=== PATIENT | female | born 1965 | race Caucasian/White ===

== ENCOUNTER 2017-03-12 12:15 | Emergency (ER) | payer OTHER ==
[~2017-03-12] VITALS: Ht 177.8 cm; Wt 100.0 kg
[~2017-03-12 12:15] MED LIST: CHOL1CAP6 PO; NITR.4 SL; PRAV20TA67 PO; RANI150 PO; TOPR25TA2 PO; VITA250L PO
[2017-03-12 12:16] VITALS: BP 140/92; PULSE 80; RESP 18; TEMP 98.3; O2SAT 97
--- NOTE | 2017-03-12 12:34 | PD ---
Physical Exam Time Seen by Provider: 12:32 Narrative Pt presents to the ED for evaluation of posterior head pain radiating to right arm that began 5 days ago worsened today. Denies any injury or trauma. Painful ROM of neck. Has history of neck pain. VSS. Awaiting bed placement. Data Data Last Documented VS Vital Signs Date Time Temp Pulse Resp B/P Pulse Ox O2 Delivery O2 Flow Rate FiO2 03/12/17 12:16 98.3 80 18 140/92 97 Room Air MDM Supervised Visit with CASIE: Marta Phillips Mar 12, 2017 12:34
[2017-03-12] MEDS ORDERED: METO25TA6 PO (12:53)
[2017-03-12] MEDS ORDERED: PRAV20TA2 PO (12:53)
--- NOTE | 2017-03-12 13:14 | PD ---
HPI Chief Complaint: Headache Time Seen by Provider: 13:13 Travel History International Travel<30 days: No Contact w/Intl Traveler<30days: No Traveled to known affect area: No History of Present Illness HPI 51-year-old female presents to the emergency Department with complaint of a right posterior headache since Friday. She was at work when the headache onset and gradually onset. It fluctuates in intensity. Reports nausea without vomiting. Denies fever. Headache is throbbing and stabbing in sensation. Rates the headache 7/10. Headache is not worse with movement of the neck. Denies photophobia or phonophobia. Denies change in mentation, confusion, disorientation. Denies focal deficits or weakness. Denies slurred speech. Does have history of migraines but has not had a migraine for many years and this is not similar to past headaches. She does report chronic neck pain which she has some physical therapy for. She also is complaining of pain that radiates down her right arm at times. She has tried taking Tylenol and ibuprofen with no relief of headache. Denies anticoagulants. History of complete hysterectomy. No known relieving factors. Allergies to adhesives and codeine. Has no other medical complaints. No other modifying factors or associated signs and symptoms. PFSH Past Medical History Blood Disorders: No Heart Rhythm Problems: Yes (PALPITATIONS) Cancer: No Cardiac Catheterization: Yes (2008) Cardiovascular Problems: Yes High Cholesterol: Yes Chest Pain: Yes Congestive Heart Failure: No Diabetes: No Diminished Hearing: No Endocrine: No Genitourinary: Yes Hepatitis: No Hiatal Hernia: No Hypertension: Yes (PT DENIES ) Immune Disorder: No Kidney Stones: Yes (lithotripsy x1, stones x2-3) Medical other: Yes (neck pain going to physical therapy right now) Musculoskeletal: Yes Neurologic: Yes Psychiatric: No Reproductive: Yes (Hx ectopic , s/p hysterectomy and bilateral oophorectomy) Respiratory: No Immunizations Current: Yes Migraines: Yes Thyroid Disease: No ?: Not Menopausal: No : 2 Para: 1 Miscarriage: 1 Ectopic : Yes (2001) Past Surgical History Abdominal Surgery: Yes (gallbladder removed) Section: Yes Cholecystectomy: Yes Coronary Artery Bypass Graft: No Gynecologic Surgery: Yes ( ablation , ectopic , hysterectomy with bilateral oophorectomy) Hysterectomy: Yes Other Surgery: Yes Social History Alcohol Use: No Tobacco Use: No Substance Use: No Allergies-Medications (Allergen,Severity, Reaction): Coded Allergies: Adhesives (Verified Allergy, Intermediate, Rash, 03/12/17) Codeine (Verified Adverse Reaction, Intermediate, Nausea/Vomiting, 03/12/17) Reported Meds & Prescriptions Reported Meds & Active Scripts Active Robaxin (Methocarbamol) 500 Mg Tab 500 Mg PO QID PRN Ibuprofen 800 Mg Tab 800 Mg PO Q6HR PRN Reported Metoprolol Succinate ER 24 HR (Metoprolol Succinate) 25 Mg Tab 25 Mg PO BID Pravastatin 20 Mg Tab 20 Mg PO DAILY Review of Systems Except as stated in HPI: all other systems reviewed are Neg Physical Exam Narrative GENERAL: Well-nourished, well-developed female patient, in no acute distress SKIN: Warm and dry. HEAD: Atraumatic. Normocephalic. No facial droop noted. Tongue midline. EYES: Pupils equal and round at 3 mm with brisk reaction. No scleral icterus. No injection or drainage. PERRLA. EOMI. ENT: Mucosa pink and moist. Airway patent. NECK: Trachea midline. No lymphadenopathy. CARDIOVASCULAR: Regular rate and rhythm. No murmur appreciated. RESPIRATORY: No accessory muscle use. Clear to auscultation. Breath sounds equal bilaterally. GASTROINTESTINAL: Abdomen soft, non-tender, nondistended. Hepatic and splenic margins not palpable. Bowel sounds are active 4 quadrants. MUSCULOSKELETAL: Bilateral upper and lower extremities with equal strength. No obvious deformities. No clubbing. No cyanosis. No edema. NEUROLOGICAL: Awake and alert. Oriented 3. No obvious cranial nerve deficits. Motor grossly within normal limits. Normal speech. No ataxia. No mid -line drift. Moves all extremities. 5/5 strength to all extremities. PSYCHIATRIC: Appropriate mood and affect; insight and judgment normal. Data Data Last Documented VS Vital Signs Date Time Temp Pulse Resp B/P Pulse Ox O2 Delivery O2 Flow Rate FiO2 03/12/17 12:16 98.3 80 18 140/[address] Brain W/O Iv Contrast(Rout) (03/12/17 ) Ketorolac Inj (Toradol Inj) (03/12/17 13:45) Ondansetron Odt (Zofran Odt) (03/12/17 13:45) MDM Medical Decision Making Medical Screen Exam Complete: Yes Emergency Medical Condition: Yes Medical Record Reviewed: Yes Differential Diagnosis Neck pain, headaches, cervical radicular retinopathy Narrative Course 51-year-old female with right posterior headache since Friday. Patient is history of migraines but this is not similar to her migraine headaches. Was gradual onset. Neurological exam is unremarkable. Patient is moving extremities in chronic neck pain for the past few years with possible cervical radiculopathy. She does not feel that her headache is related to her neck pain. CT head ordered. 1342: CT head concludes: Normal examination for a patient of this age. No significant change has occurred. I discussed further evaluation of the headache with spinal tap and the patient declined at this time. Suspecting headache is related to cervical radiculopathy of the neck. Patient has an appointment was scheduled with neurology on Friday. Toradol and Zofran administered in the ER. Ibuprofen prescribed for home. Instructed patient to follow up with primary care provider. Patient verbalizes understanding and agreement with treatment plan. Patient is medically cleared and stable for discharge. Discussed reasons to return to the emergency department. Patient agrees with treatment plan. The patients vital signs are stable and the patient is stable for outpatient follow-up and treatment. Patient discharged home, stable and in no acute distress. Diagnosis Primary Impression: Headache Qualified Code: R51 - Nonintractable headache, unspecified chronicity pattern , unspecified headache type Additional Impression: Chronic neck pain Referrals: Primary Care Physician Patient Instructions: Acute Headache (ED), General Headache (ED), General Instructions, Neck Pain (ED) Additional Instructions: Ibuprofen or Tylenol as directed and as needed to reduce headache Get plenty of rest: do not over sleep rest and relax in a dark, quiet room as needed Place an ice pack on the back of her neck to reduce head pain as needed Keep a headache diary of what triggers her headaches and what treatment is most effective Avoid identifiable triggers Avoid smoking, alcohol and caffeine consumption Reduce stress Follow-up with primary care provider within 1-2 days Follow-up with neurology Return immediately to the emergency department with worsening symptoms Med/Other Pt SpecificInfo: Prescription(s) given Scripts Methocarbamol (Robaxin)500 Mg [id number] Mg PO QID PRN (MUSCLE SPASM) #30 TAB Ref 0 Prov:Marta Díaz 03/12/17 Ibuprofen 800 Mg [id number] Mg PO Q6HR PRN (PAIN) #30 TAB Ref 0 Prov:Marta Díaz 03/12/17 Disposition: 01 DISCHARGE HOME Condition: Stable Marta Díaz Mar 12, 2017 13:14
--- NOTE | 2017-03-12 13:39 | RADRPT ---
EXAM DATE/TIME: 03/12/2017 13:28 [facility] COMPARISON: CT BRAIN W/O CONTRAST, February 04, 2012, 23:11. INDICATIONS : Posterior headache. RADIATION DOSE: 56.35 CTDIvol (mGy) MEDICAL HISTORY : Cardiovascular disease. SURGICAL HISTORY : Cholecystectomy. Hysterectomy. ENCOUNTER: Initial ACUITY: 1 week PAIN SCALE: 4/10 LOCATION: Bilateral cranial TECHNIQUE: Multiple contiguous axial images were obtained of the head. Using automated exposure control and adj ustment of the mA and/or kV according to patient size, radiation dose was kept as low as reasonably a chievable to obtain optimal diagnostic quality images. DICOM format image data is available electro nically for review and comparison. FINDINGS: CEREBRUM: The ventricles are normal for age. No evidence of midline shift, mass lesion, hemorrhage or acute in farction. No extra-axial fluid collections are seen. POSTERIOR FOSSA: The cerebellum and brainstem are intact. The 4th ventricle is midline. The cerebellopontine angle i s unremarkable. EXTRACRANIAL: The visualized portion of the orbits is intact. SKULL: The calvaria is intact. No evidence of skull fracture. CONCLUSION: Normal examination for a patient of this age. No significant change has occurred. Gamal Anaya MD on March 12, 2017 at 13:36 Board Certified Radiologist. This report was verified electronically.
[2017-03-12] MEDS ORDERED: KETOROLAC TROMETHAMINE 60 MG/2 ML (IM) VIAL IM ONE (13:45)
[2017-03-12] MEDS ORDERED: ONDANSETRON ODT 4 MG TAB PO ONE (13:45)
[2017-03-12] MEDS ORDERED: IBUP800T23 PO (13:49)
[2017-03-12] MEDS ORDERED: ROBA500T PO (13:50)
== END 2017-03-12 14:34 | disposition home or self-care (01) ==
LOC: NEPK 12:15
DX: R51 Headache (principal); M54.2 Cervicalgia; G89.29 Other chronic pain; M54.12 Radiculopathy, cervical region; R11.0 Nausea; I10 Essential (primary) hypertension; E78.00 Pure hypercholesterolemia, unspecified; Z86.79 Personal history of other diseases of the circulatory system; Z87.448 Personal history of other diseases of urinary system; Z87.39 Personal history of other diseases of the musculoskeletal system and connective tissue; Z86.69 Personal history of other diseases of the nervous system and sense organs
CPT/HCPCS: 70450; 96372; 99285; J1885

== ENCOUNTER 2017-05-30 20:04 | Emergency (ER) | payer OTHER ==
[~2017-05-30] VITALS: Ht 160 cm; Wt 108.9 kg
[~2017-05-30 20:04] MED LIST changes: -CHOL1CAP6 PO; +IBUP800T23 PO; +METO25TA6 PO; -NITR.4 SL; +PRAV20TA2 PO; -PRAV20TA67 PO; -RANI150 PO; +ROBA500T PO; -TOPR25TA2 PO; -VITA250L PO
[2017-05-30] MEDS ORDERED: IOHEXOL 350 MG/ML 10 ML VIAL (for RAD DIAG) IVCONTRAST ONE (20:05)
[2017-05-30 20:08] VITALS: BP 139/87; PULSE 80; RESP 16; TEMP 97.6; O2SAT 95
--- NOTE | 2017-05-30 20:36 | PD ---
HPI Chief Complaint: Abdominal Pain Time Seen by Provider: 20:23 Travel History International Travel<30 days: No Contact w/Intl Traveler<30days: No Traveled to known affect area: No History of Present Illness HPI The patient is a 51-year-old female that complains of bilateral suprapubic pain that started this morning. The pain got worse throughout the day. She had a similar episode of this pain in the past which they attributed to urinary tract infection and she was treated with antibiotics. The patient denies any fever, flank pain, dysuria, frequency or urgency. She denies any cough or shortness of breath. She has had a hysterectomy and cholecystectomy. She denies any nausea or vomiting or diarrhea. She claims a pain of 8/10 and a "heaviness" in the suprapubic area. PFSH Past Medical History Blood Disorders: No Heart Rhythm Problems: Yes (PALPITATIONS) Cancer: No Cardiac Catheterization: Yes (2008) Cardiovascular Problems: Yes High Cholesterol: Yes Chest Pain: Yes Congestive Heart Failure: No Diabetes: No Diminished Hearing: No Endocrine: No Gastrointestinal Disorders: No Genitourinary: Yes Hepatitis: No Hiatal Hernia: No Heparin Induced Thrombocytopen: No Hypertension: Yes (PT DENIES ) Immune Disorder: No Implanted Vascular Access Dvce: No Kidney Stones: Yes (lithotripsy x1, stones x2-3) Medical other: Yes (neck pain going to physical therapy right now) Musculoskeletal: Yes Neurologic: Yes Psychiatric: No Reproductive: Yes (Hx ectopic , s/p hysterectomy and bilateral oophorectomy) Respiratory: No Immunizations Current: Yes Migraines: Yes Thyroid Disease: No Tetanus Vaccination: Unknown Influenza Vaccination: No ?: Not Menopausal: No : 2 Para: 1 Miscarriage: 1 Ectopic : Yes (2001) Past Surgical History Abdominal Surgery: Yes (gallbladder removed) Section: Yes Cholecystectomy: Yes Coronary Artery Bypass Graft: No Gynecologic Surgery: Yes ( ablation , ectopic , hysterectomy with bilateral oophorectomy) Hysterectomy: Yes Other Surgery: Yes Social History Alcohol Use: No Tobacco Use: No Substance Use: No Allergies-Medications (Allergen,Severity, Reaction): Coded Allergies: adhesive (Unverified Allergy, Intermediate, Rash, 05/30/17) codeine (Unverified Adverse Reaction, Intermediate, Nausea/Vomiting, ) Reported Meds & Prescriptions Reported Meds & Active Scripts Active Reported Metoprolol Succinate ER 24 HR (Metoprolol Succinate) 25 Mg Tab 25 Mg PO BID Pravastatin 20 Mg Tab 20 Mg PO DAILY Review of Systems Except as stated in HPI: all other systems reviewed are Neg Physical Exam Narrative GENERAL: The patient is obese, alert, oriented 3 in slight apparent distress with her suprapubic discomfort. Her vital signs are normal. SKIN: Focused skin assessment warm/dry. No skin rash is seen. HEAD: Atraumatic. Normocephalic. EYES: Pupils equal and round. No scleral icterus. No injection or drainage. ENT: No nasal bleeding or discharge. Mucous membranes pink and moist. NECK: Trachea midline. No JVD. There is no meningismus present. CARDIOVASCULAR: Regular rate and rhythm. No murmur appreciated. RESPIRATORY: No accessory muscle use. Clear to auscultation. Breath sounds equal bilaterally. GASTROINTESTINAL: Abdomen soft, with slight tenderness to direct palpation in the midline suprapubic area, nondistended. Hepatic and splenic margins not palpable. No guarding or rebound is present. MUSCULOSKELETAL: No obvious deformities. No clubbing. No cyanosis. No edema. NEUROLOGICAL: Awake and alert. No obvious cranial nerve deficits. Motor grossly within normal limits. Normal speech. PSYCHIATRIC: Appropriate mood and affect; insight and judgment normal. Data Data Last Documented VS Vital Signs Date Time Temp Pulse Resp B/P (MAP) Pulse Ox O2 Delivery O2 Flow Rate FiO2 05/30/17 22:13 78 18 132/78 (96) 98 Room Air 05/30/17 20:08 97.6 Orders Orders Complete Blood Count With Diff (05/30/17 20:37) Comprehensive Metabolic Panel (05/30/17 20:37) Urinalysis - C+S If Indicated (05/30/17 20:37) Iv Access Insert/Monitor (05/30/17 20:37) Ecg Monitoring (05/30/17 20:37) Oximetry (05/30/17 20:37) Sodium Chlor 0.9% 1000 Ml Inj (Ns 1000 M (05/30/17 20:37) Sodium Chloride 0.9% Flush (Ns Flush) (05/30/17 20:45) Ct Abd/Pel W Iv Contrast(Rout) (05/30/17 21:39) Iohexol 350 Inj (Omnipaque 350 Inj) (05/30/17 20:05) Labs Laboratory Tests Test 05/30/17 20:55 White Blood Count 6.8 TH/MM3 Red Blood Count 4.50 MIL/MM3 Hemoglobin 14.2 GM/DL Hematocrit 40.7 % Mean Corpuscular Volume 90.4 FL Mean Corpuscular Hemoglobin 31.6 PG Mean Corpuscular Hemoglobin Concent 35.0 % Red Cell Distribution Width 12.3 % Platelet Count 249 TH/MM3 Mean Platelet Volume 7.3 FL Neutrophils (%) (Auto) 56.5 % Lymphocytes (%) (Auto) 31.7 % Monocytes (%) (Auto) 8.0 % Eosinophils (%) (Auto) 3.2 % Basophils (%) (Auto) 0.6 % Neutrophils # (Auto) 3.9 TH/MM3 Lymphocytes # (Auto) 2.2 TH/MM3 Monocytes # (Auto) 0.5 TH/MM3 Eosinophils # (Auto) 0.2 TH/MM3 Basophils # (Auto) 0.0 TH/MM3 CBC Comment DIFF FINAL Differential Comment Urine Collection Type VOIDED Urine Color YELLOW Urine Turbidity CLEAR Urine pH 6.0 Urine Specific [place] 1.027 Urine Protein NEG mg/dL Urine Glucose (UA) NEG mg/dL Urine Ketones NEG mg/dL Urine Occult Blood TRACE Urine Nitrite NEG Urine Bilirubin NEG Urine Leukocyte Esterase TRACE Urine WBC 0-2 /hpf Urine Squamous Epithelial Cells 0-5 /hpf Urine Calcium Oxalate Crystals FEW /hpf Urine Bacteria FEW /hpf Microscopic Urinalysis Comment CULT NOT INDICATED Urine Collection Time 2054 Blood Urea Nitrogen 17 MG/DL Creatinine 0.84 MG/DL Random Glucose 166 MG/DL Total Protein 7.4 GM/DL Albumin 3.6 GM/DL Calcium Level 9.3 MG/DL Alkaline Phosphatase 94 U/L Aspartate Amino Transf (AST/SGOT) 24 U/L Alanine Aminotransferase (ALT/SGPT) 42 U/L Total Bilirubin 0.3 MG/DL Sodium Level 139 MEQ/L Potassium Level 3.8 MEQ/L Chloride Level 103 MEQ/L Carbon Dioxide Level 28.3 MEQ/L Anion Gap 8 MEQ/L Estimat Glomerular Filtration Rate 72 ML/MIN [facility] Medical Decision Making Medical Screen Exam Complete: Yes Emergency Medical Condition: Yes Medical Record Reviewed: Yes Interpretation(s) The urine shows specific gravity 1.027, trace occult blood, trace leukocyte esterase with a few calcium oxalate crystals and few bacteria but is otherwise normal and culture is not indicated. The CBC is normal. The complete metabolic profile shows a glucose of 166 with a GFR of 72 but is otherwise unremarkable. Differential Diagnosis Cystitis, appendicitis, colitis, electrolyte disorder, anemia Narrative Course No findings are present to explain the patient's suprapubic pain. The pain appears to be on the bladder. We will try empirically Cipro to see if this helps her problem. She may have a cystitis that simply did not show any urine. Diagnosis Primary Impression: Abdominal pain of unknown etiology Additional Instructions: Drink plenty of liquids. It is possible that this may be a urinary infection that simply did not show up in the urine. The Cipro is twice daily for 7 days. The Lortab 5's for pain and the Phenergan is for nausea. Do not drink alcohol or drive on either of these medications. Follow-up with your [facility] provider next week. Med/Other Pt SpecificInfo: Prescription(s) given Scripts Ciprofloxacin (Cipro) 500 Mg Tab 500 MG PO BID for Infection for 7 Days, #14 TAB 0 Refills Prov: Arturo Berman MD 05/30/17 Hydrocodone-Acetaminophen (Lortab) 5-325 Mg Tab 1 TAB PO Q6H Y for PAIN, #20 TAB 0 Refills Prov: Arturo Berman MD 05/30/17 Promethazine (Phenergan) 25 Mg Tablet 25 MG PO Q6H Y for NAUSEA OR VOMITING, #20 TAB 0 Refills Prov: Arturo Berman MD 05/30/17 Disposition: 01 DISCHARGE HOME Condition: Stable Arturo Berman MD May 30, 2017 20:36
[2017-05-30] MEDS ORDERED: SODIUM CHLOR 0.9% 1000 ML INJ 1,000 ML IV SCH (20:37)
[2017-05-30 20:45] VITALS: O2SAT 97
[2017-05-30] MEDS ORDERED: SODIUM CHLORIDE 0.9% FLUSH 10 ML FLUSH IV FLUSH PRN (20:45)
[2017-05-30 21:02] LABS: AUTOMATED NEUTROPHIL # 3.9 TH/MM3 (1.8-7.7); BASOPHIL % 0.6 % (0.0-2.0); EOSINOPHIL # 0.2 TH/MM3 (0-0.4); EOSINOPHIL % 3.2 % (0.0-4.0); HEMATOCRIT 40.7 % (35.0-46.0); HEMO FLAGS DIFF FINAL; LYMPH % 31.7 % (9.0-44.0); LYMPHOCYTE # 2.2 TH/MM3 (1.0-4.8); MEAN CELL VOLUME 90.4 FL (80.0-100.0); MEAN CORPUSCULAR HEMOGLOBIN 31.6 PG (27.0-34.0); NEUT % 56.5 % (16.0-70.0); PLATELET COUNT 249 TH/MM3 (150-450); RED CELL DISTRIBUTION WIDTH 12.3 % (11.6-17.2); WHITE BLOOD COUNT 6.8 TH/MM3 (4.0-11.0)
[2017-05-30 21:03] LABS: BLOOD, URINE TRACE (NEG); GLUCOSE,URINE NEG (NEG); KETONE, URINE NEG (NEG); NITRITE,URINE NEG (NEG)
[2017-05-30 21:20] LABS: BACTERIA, URINE FEW /hpf; METHOD OF COLLECTION VOIDED; URINE COLOR YELLOW (YELLW/STRAW); WBC, URINE 0-2 /hpf (0-5)
[2017-05-30 21:21] LABS: CALCIUM OXALATE CRYSTALS,URINE FEW /hpf; COMMENT (UR) CULT NOT INDICATED; CULTURE IF INDICATED CULT NOT INDICATED; SQUAMOUS EPITHELIAL CELL URINE 0-5 /hpf (0-5)
[2017-05-30 21:22] LABS: CHLORIDE 103 MEQ/L (98-107); POTASSIUM 3.8 MEQ/L (3.5-5.1); SODIUM (NA) 139 MEQ/L (136-145)
[2017-05-30 21:26] LABS: ANION GAP 8 MEQ/L (5-15); BICARBONATE 28.3 MEQ/L (21.0-32.0); BLOOD UREA NITROGEN 17 MG/DL (7-18)
[2017-05-30 21:29] LABS: ALT (GPT) 42 U/L (10-53); AST (GOT) 24 U/L (15-37); GLOMERULAR FILTRATION RATE 72 ML/MIN (>89)
[2017-05-30 21:31] LABS: TOTAL BILIRUBIN ADULT 0.3 MG/DL (0.2-1.0)
[2017-05-30 21:32] LABS: ALKALINE PHOSPHATASE 94 U/L (45-117)
[2017-05-30 22:13] VITALS: BP 132/78; PULSE 78; RESP 18; O2SAT 98
--- NOTE | 2017-05-30 22:35 | RADRPT ---
EXAM DATE/TIME: 05/30/2017 22:07 [facility] COMPARISON: No previous studies available for comparison. INDICATIONS : Lower abdominal pain for 1 day IV CONTRAST: 89 cc Omnipaque 350 (iohexol) IV ORAL CONTRAST: No oral contrast ingested. RADIATION DOSE: 22.08 CTDIvol (mGy) MEDICAL HISTORY : Renal calculi. Gastroesophageal reflux disease. SURGICAL HISTORY : Coronary artery stent. Cholecystectomy.Hysterectomy. ENCOUNTER: Initial ACUITY: 1 day PAIN SCALE: 8/10 LOCATION: Bilateral Umbilical TECHNIQUE: Volumetric scanning of the abdomen and pelvis was performed. Using automated exposure control and ad justment of the mA and/or kV according to patient size, radiation dose was kept as low as reasonably achievable to obtain optimal diagnostic quality images. DICOM format image data is available electro nically for review and comparison. FINDINGS: LOWER LUNGS: The visualized lower lungs are clear. LIVER: The liver is enlarged and demonstrates mild diffuse fatty infiltration. No focal hepatic mass is note d. There is no dilation of the biliary tree. No calcified gallstones. Status post cholecystectomy. SPLEEN: Normal size without lesion. PANCREAS: Within normal limits. KIDNEYS: Normal in size and shape. There is a 16 mm left renal cyst. There is a 2 mm lower pole calcified non obstructing right renal calculus. There is no solid mass or hydronephrosis. ADRENAL GLANDS: Within normal limits. VASCULAR: There is no aortic aneurysm. BOWEL/MESENTERY: The stomach, small bowel, and colon demonstrate no acute abnormality. There is no free intraperitone al air or fluid. The appendix is normal. ABDOMINAL WALL: Within normal limits. RETROPERITONEUM: There is no lymphadenopathy. BLADDER: No wall thickening or mass. REPRODUCTIVE: Within normal limits. INGUINAL: There is no lymphadenopathy or hernia. MUSCULOSKELETAL: Mild scoliosis of the lumbar spine is noted. CONCLUSION: 1. No CT evidence of acute appendicitis. 2. 2 mm nonobstructing calcified lower pole right renal calculus. 3. 16 mm left renal cyst. 4. Enlarged fatty liver. 5. Mild scoliosis of the lumbar spine. Agustin Garcia MD on May 30, 2017 at 22:30 Board Certified Radiologist. This report was verified electronically.
[2017-05-30] MEDS ORDERED: PROM25TA10 PO (22:52)
[2017-05-30] MEDS ORDERED: CIPR-9 PO (22:52)
[2017-05-30] MEDS ORDERED: HYDR-3533 PO (22:52)
[2017-05-30] MEDS ORDERED: KETOROLAC TROMETHAMINE 60 MG/2 ML (IM) VIAL IVP ONE (23:00)
[2017-05-30] MEDS ORDERED: CIPROFLOXACIN 500 MG TAB PO ONE (23:00)
[2017-05-30 23:21] VITALS: BP 134/76; PULSE 72; RESP 18; O2SAT 98
== END 2017-05-30 23:38 | disposition home or self-care (01) ==
LOC: PHED 20:04
DX: R10.9 Unspecified abdominal pain (principal); E78.00 Pure hypercholesterolemia, unspecified
CPT/HCPCS: 74177; 80053; 81001; 85025; 96361; 96374; 99285; J1885; J7030; Q9967

== ENCOUNTER 2017-06-27 19:00 | Emergency (ER) | payer OTHER ==
[~2017-06-27] VITALS: Ht 160 cm; Wt 107.7 kg
[~2017-06-27 19:00] MED LIST changes: +CIPR-9 PO; +HYDR-3533 PO; -IBUP800T23 PO; +PROM25TA10 PO; -ROBA500T PO
[2017-06-27 19:28] VITALS: BP 145/89; PULSE 79; RESP 18; TEMP 98.2; O2SAT 96
[2017-06-27] MEDS ORDERED: KETOROLAC TROMETHAMINE 30 MG/ML (IVP) VIAL IVP ONE (19:45)
[2017-06-27] MEDS ORDERED: ALUMINUM/MAGNESIUM/SIMETH 30 ML CUP PO ONE (19:45)
[2017-06-27] MEDS ORDERED: ONDANSETRON HCL 4 MG/2 ML VIAL IVP ONE (19:45)
[2017-06-27] MEDS ORDERED: LIDOCAINE VISCOUS 2% SOLN 15 ML UDC PO ONE (19:45)
[2017-06-27] MEDS ORDERED: SODIUM CHLOR 0.9% 1000 ML INJ 1,000 ML IV SCH (19:45)
[2017-06-27] MEDS ORDERED: SODIUM CHLORIDE 0.9% FLUSH 10 ML FLUSH IV FLUSH PRN (19:45)
[2017-06-27 20:07] LABS: AUTOMATED NEUTROPHIL # 4.1 TH/MM3 (1.8-7.7); BASOPHIL % 0.6 % (0.0-2.0); EOSINOPHIL # 0.2 TH/MM3 (0-0.4); EOSINOPHIL % 3.2 % (0.0-4.0); HEMATOCRIT 42.1 % (35.0-46.0); HEMO FLAGS DIFF FINAL; LYMPH % 29.3 % (9.0-44.0); MEAN CELL VOLUME 89.9 FL (80.0-100.0); MEAN CORPUSCULAR HEMOGLOBIN 30.6 PG (27.0-34.0); MEAN CORPUSCULAR HGB CONC 34.1 % (32.0-36.0); MONO % 8.7 % (0.0-8.0); NEUT % 58.2 % (16.0-70.0); PLATELET COUNT 257 TH/MM3 (150-450); RED BLOOD COUNT 4.68 MIL/MM3 (4.00-5.30); WHITE BLOOD COUNT 6.9 TH/MM3 (4.0-11.0)
[2017-06-27 20:20] LABS: CHLORIDE 103 MEQ/L (98-107); POTASSIUM 3.9 MEQ/L (3.5-5.1); SODIUM (NA) 139 MEQ/L (136-145)
[2017-06-27 20:24] LABS: ANION GAP 7 MEQ/L (5-15); BICARBONATE 29.5 MEQ/L (21.0-32.0); BLOOD UREA NITROGEN 15 MG/DL (7-18)
[2017-06-27 20:27] LABS: ALT (GPT) 58 U/L (10-53); AST (GOT) 29 U/L (15-37); GLOMERULAR FILTRATION RATE 77 ML/MIN (>89)
[2017-06-27 20:29] LABS: TOTAL BILIRUBIN ADULT 0.4 MG/DL (0.2-1.0)
[2017-06-27 20:30] LABS: ALKALINE PHOSPHATASE 81 U/L (45-117)
--- NOTE | 2017-06-27 20:33 | PD ---
HPI Chief Complaint: Abdominal Pain Time Seen by Provider: 19:37 Travel History International Travel<30 days: No Contact w/Intl Traveler<30days: No Traveled to known affect area: No History of Present Illness HPI 51 yo F c/o epigastric abdomen pain intermittently all day much worse over the past hour or so, associated symptoms include decreased oral intake today. zantac was not helpful. pt reports a visit here one month ago for lower abdominal pain/suprapubic pain.no abdominal vb/vd. no idiosyncratic food. PFSH Past Medical History Blood Disorders: No Heart Rhythm Problems: Yes (PALPITATIONS) Cancer: No Cardiac Catheterization: Yes (2008) Cardiovascular Problems: Yes High Cholesterol: Yes Chest Pain: Yes Congestive Heart Failure: No Diabetes: No Diminished Hearing: No Endocrine: No Gastrointestinal Disorders: No Genitourinary: Yes Hepatitis: No Hiatal Hernia: No Heparin Induced Thrombocytopen: No Hypertension: Yes (PT DENIES ) Immune Disorder: No Implanted Vascular Access Dvce: No Kidney Stones: Yes (lithotripsy x1, stones x2-3) Medical other: Yes (neck pain going to physical therapy right now) Musculoskeletal: Yes Neurologic: Yes Psychiatric: No Reproductive: Yes (Hx ectopic , s/p hysterectomy and bilateral oophorectomy) Respiratory: No Immunizations Current: Yes Migraines: Yes Thyroid Disease: No ?: Not Menopausal: No : 2 Para: 1 Miscarriage: 1 Ectopic : Yes (2001) Past Surgical History Abdominal Surgery: Yes (gallbladder removed) Section: Yes Cholecystectomy: Yes Coronary Artery Bypass Graft: No Gynecologic Surgery: Yes ( ablation , ectopic , hysterectomy with bilateral oophorectomy) Hysterectomy: Yes Other Surgery: Yes Social History Alcohol Use: No Tobacco Use: No Substance Use: No Allergies-Medications (Allergen,Severity, Reaction): Coded Allergies: adhesive (Unverified Allergy, Intermediate, Rash, 05/30/17) codeine (Unverified Adverse Reaction, Intermediate, Nausea/Vomiting, ) Reported Meds & Prescriptions Reported Meds & Active Scripts Active Reported Metoprolol Succinate ER 24 HR (Metoprolol Succinate) 25 Mg Tab 25 Mg PO BID Pravastatin 20 Mg Tab 20 Mg PO DAILY Review of Systems Except as stated in HPI: all other systems reviewed are Neg General / Constitutional: No: Fever Physical Exam Narrative GENERAL: 51 yo F, WNWD, NAD SKIN: Warm and dry. HEAD: Atraumatic. Normocephalic. EYES: Pupils equal and round. No scleral icterus. No injection or drainage. ENT: No nasal bleeding or discharge. Mucous membranes pink and moist. NECK: Trachea midline. No JVD. CARDIOVASCULAR: Regular rate and rhythm. RESPIRATORY: No accessory muscle use. Clear to auscultation. Breath sounds equal bilaterally. GASTROINTESTINAL: Soft. No focus of tenderness. No rebound. MUSCULOSKELETAL: Extremities without clubbing, cyanosis, or edema. No obvious deformities. NEUROLOGICAL: Awake and alert. No obvious cranial nerve deficits. Motor grossly within normal limits. Five out of 5 muscle strength in the arms and legs. Normal speech. PSYCHIATRIC: Appropriate mood and affect; insight and judgment normal. Data Data Last Documented VS Vital Signs Date Time Temp Pulse Resp B/P (MAP) Pulse Ox O2 Delivery O2 Flow Rate FiO2 06/27/17 20:59 87 16 118/59 (78) 99 06/27/17 19:28 98.2 VS reviewed Orders Orders Complete Blood Count With Diff (06/27/17 19:45) Comprehensive Metabolic Panel (06/27/17 19:45) Lipase (06/27/17 19:45) Iv Access Insert/Monitor (06/27/17 19:45) Ecg Monitoring (06/27/17 19:45) Oximetry (06/27/17 19:45) Ondansetron Inj (Zofran Inj) (06/27/17 19:45) Sodium Chlor 0.9% 1000 Ml Inj (Ns 1000 M (06/27/17 19:45) Sodium Chloride 0.9% Flush (Ns Flush) (06/27/17 19:45) Ketorolac Inj (Toradol Inj) (06/27/17 19:45) Al-Mag Hy-Si 40-40-4 Mg/Ml Liq (Mag-Al P (06/27/17 19:45) Lidocaine 2% Viscous (Xylocaine 2% Visco (06/27/17 19:45) Ed Discharge Order (06/27/17 20:33) Labs Laboratory Tests Test 06/27/17 20:00 White Blood Count 6.9 TH/MM3 Red Blood Count 4.68 MIL/MM3 Hemoglobin 14.3 GM/DL Hematocrit 42.1 % Mean Corpuscular Volume 89.9 FL Mean Corpuscular Hemoglobin 30.6 PG Mean Corpuscular Hemoglobin Concent 34.1 % Red Cell Distribution Width 12.0 % Platelet Count 257 TH/MM3 Mean Platelet Volume 7.1 FL Neutrophils (%) (Auto) 58.2 % Lymphocytes (%) (Auto) 29.3 % Monocytes (%) (Auto) 8.7 % Eosinophils (%) (Auto) 3.2 % Basophils (%) (Auto) 0.6 % Neutrophils # (Auto) 4.1 TH/MM3 Lymphocytes # (Auto) 2.0 TH/MM3 Monocytes # (Auto) 0.6 TH/MM3 Eosinophils # (Auto) 0.2 TH/MM3 Basophils # (Auto) 0.0 TH/MM3 CBC Comment DIFF FINAL Differential Comment Blood Urea Nitrogen 15 MG/DL Creatinine 0.79 MG/DL Random Glucose 116 MG/DL Total Protein 7.7 GM/DL Albumin 3.7 GM/DL Calcium Level 9.8 MG/DL Alkaline Phosphatase 81 U/L Aspartate Amino Transf (AST/SGOT) 29 U/L Alanine Aminotransferase (ALT/SGPT) 58 U/L Total Bilirubin 0.4 MG/DL Sodium Level 139 MEQ/L Potassium Level 3.9 MEQ/L Chloride Level 103 MEQ/L Carbon Dioxide Level 29.5 MEQ/L Anion Gap 7 MEQ/L Estimat Glomerular Filtration Rate 77 ML/MIN Lipase 290 U/L MDM Medical Decision Making Medical Screen Exam Complete: Yes Emergency Medical Condition: Yes Medical Record Reviewed: Yes Differential Diagnosis Constipation, Gastritis, Acute Cholecystitis, Biliary Colic, Pancreatitis, ERAZO , Hepatitis, Bowel Obstruction, Cystitis, Mesenteric Ischemia, AAA, Appendicitis , Renal Stone/Hydronephrosis, GERD, perforated viscous Narrative Course CBC & BMP Diagram 06/27/17 20:00 Total Protein 7.7, Albumin 3.7, Calcium Level 9.8, Alkaline Phosphatase 81, Aspartate Amino Transf (AST/SGOT) 29, Alanine Aminotransferase (ALT/SGPT) 58 H, Total Bilirubin 0.4 Lipase 290 Pt has hx cholecystectomy and hysterectomy. The patient is resting comfortably and feels better, is alert and in no distress. The patients results and examination findings were discussed. The repeat examination is unremarkable and benign. The history, exam, diagnostic testing, and current condition do not suggest any significant pathology to warrant further testing, continued ED treatment, admission, or surgical evaluation at this point. The vital signs have been stable. The patient does not have uncontrollable pain, intractable vomiting, or other significant symptoms. The patient's condition is stable and appropriate for discharge. The patient will pursue further outpatient evaluation with a primary care physician or other designated or consulting physician as indicated in the discharge instructions. The patient expressed understanding and was agreeable with this plan. Diagnosis Primary Impression: Steatohepatitis, nonalcoholic Referrals: Israel Altamirano MD 1 week Primary Care Physician 3 days Additional Instructions: You have a choice when it comes to health care, and we are glad that you chose [facility]. Hopefully, we have met your expectations on today's visit. You are welcome to return to [facility] at any time, as we are committed to meeting the health care needs of our community. Med/Other Pt SpecificInfo: No Change to Meds Disposition: 01 DISCHARGE HOME Condition: Stable David Pearson MD Jun 27, 2017 20:32
[2017-06-27 20:59] VITALS: BP 118/59
== END 2017-06-27 21:02 | disposition home or self-care (01) ==
LOC: PHED 19:00
DX: K75.81 Nonalcoholic steatohepatitis (NASH) (principal)
CPT/HCPCS: 80053; 83690; 85025; 96361; 96374; 96375; 99284; J1885; J2405; J7030

== ENCOUNTER 2018-08-02 01:13 | Observation (INO) ==
[2018-08-02] MEDS ORDERED: Sodium Chlor 0.9% Inj 500 ML IV.SIG SCH (03:00)
[2018-08-02 03:05] LABS: Baso % (Auto) 0.4 % (0.0-2.0); Eos # (Auto) 0.2 th/mm3 (0.0-0.4); Eos % (Auto) 2.8 % (0.0-4.0); Hematocrit 39.9 % (35.0-46.0); Hemoglobin 14.2 gm/dL (11.6-15.3); Lymph # (Auto) 2.2 th/mm3 (1.0-4.8); Mean Corpuscular HGB Conc 35.7 % (32.0-36.0); Mean Corpuscular Hemoglobin 33.2 pg (27.0-34.0); Mean Corpuscular Volume 93.1 fL (80.0-100.0); Mean Platelet Volume 7.4 fL (7.0-11.0); Mono # (Auto) 0.7 th/mm3 (0.0-0.9); Mono % (Auto) 10.4 % (0.0-8.0); Neut # (Auto) 3.7 th/mm3 (1.8-7.7); Neut % (Auto) 54.4 % (16.0-70.0); Platelet Count 225 th/mm3 (150-450); Red Blood Count 4.28 mil/mm3 (4.00-5.30); Red Cell Distribution Width 13.2 % (11.6-17.2); White Blood Count 6.9 th/mm3 (4.0-11.0)
[2018-08-02 03:22] LABS: Calcium 9.5 mg/dL (8.5-10.1); Carbon Dioxide 32.5 meq/L (21.0-32.0); Potassium 3.9 meq/L (3.5-5.1)
--- NOTE | 2018-08-02 03:45 | CT ---
EXAM DATE: 08/02/2018 3:22 AM EST AGE/SEX: 52 years / Female INDICATIONS: Cephalgia. CLINICAL DATA: This is the patient's initial encounter. Patient reports that signs and symptoms have been present for 3 weeks and indicates a pain score of 10/10. MEDICAL/SURGICAL HISTORY: None. None. RADIATION DOSE: 56.77 CTDI (mGy) COMPARISON: No prior exams available for comparison. TECHNIQUE: CT of the head without contrast. Using automated exposure control and adjustment of the mA and/or kV according to patient size, radiation dose was kept as low as reasonably achievable to ob tain optimal diagnostic quality images. DICOM format image data is available electronically for revi ew and comparison. FINDINGS: Cerebrum: The ventricles are normal for age. No evidence of midline shift, mass lesion, hemorrhage or acute infarction. No extraaxial fluid collections are seen. Posterior Fossa: The cerebellum and brainstem are intact. The 4th ventricle is midline. The cerebe llopontine angle is unremarkable. Extracranial: The visualized portion of the orbits is intact. Skull: The calvaria is intact. No evidence of skull fracture. CONCLUSION: 1. No acute intracranial abnormalities. . Electronically signed by: Will Keys MD 08/02/2018 3:44 AM EST
[2018-08-02] MEDS ORDERED: Ketorolac Inj 30 MG/ML (IVP) Vial IV.PUSH ONE (05:14)
--- NOTE | 2018-08-02 05:38 | ED ---
HPI General Chief complaint: Respiratory Symptoms Stated complaint: Chest Tightness/Headache/N Time Seen by Provider: 08/02/18 02:32 Source: patient Mode of arrival: ambulatory Limitations: no limitations History of Present Illness HPI narrative: 52-year-old female came to the emergency room with history of headache. Patient says this time her headache has been there for 4 weeks. She has history of headaches and sees a neurologist. She was told by her neurologist that if the headache has a different quality than she should go to the emergency room to be evaluated and hence she is here. She says this headache feels different. Usually her headache is in the front but this time its more to the back of her head and the right side. The light seems to bother her. No history of fever are neck rigidity. Patient also says that earlier today she developed some chest tightness and sweating which concerned her. Patient is not a smoker and no known history of coronary artery disease. Patient has been taking 200 mg of Motrin every couple hours with no relief. The chest tightness was all across her chest and lasted for half an hour. No radiation of the pain. Related Data Home Medications Medication Instructions Recorded Confirmed metoprolol tartrate 25 mg PO BID 08/02/18 08/02/18 pravastatin 20 mg PO DAILY 08/02/18 08/02/18 Allergies Allergy/AdvReac Type Severity Reaction Status Date / Time adhesive Allergy Intermediate Rash Unverified 05/30/17 20:08 codeine AdvReac Intermediate Nausea/Vomi Unverified 05/30/17 20:08 ting Review of Systems ROS: all other systems reviewed are negative [facility] Medical History Medical History Cholecystectomy planned (Acute) H/O: hysterectomy (Acute) Palpitations (Acute) Social History Social History Substance History: No History of Abuse Second Hand Smoke Exposure: No Smoking Status: Never smoker How Often Do You Have a Drink Containing Alcohol: Never Recent Travel in [facility] within the Last 8 Weeks: No Recent Out of Country Travel within the Last 8 Weeks: No Immunization History Tetanus Immunization: <5 Years Exam Narrative Exam Narrative: GENERAL: Awake, alert, morbidly obese, mild distress SKIN: Focused skin assessment warm/dry. HEAD: Atraumatic. Normocephalic. EYES: Pupils equal and round. No scleral icterus. No injection or drainage. ENT: No nasal bleeding or discharge. Mucous membranes pink and moist. NECK: Trachea midline. No JVD. No neck rigidity or meningismus. CARDIOVASCULAR: Regular rate and rhythm. No murmur appreciated. RESPIRATORY: No accessory muscle use. Clear to auscultation. Breath sounds equal bilaterally. GASTROINTESTINAL: Abdomen soft, non-tender, nondistended. Hepatic and splenic margins not palpable. MUSCULOSKELETAL: No obvious deformities. No clubbing. No cyanosis. No edema. NEUROLOGICAL: Awake and alert. No obvious cranial nerve deficits. Motor grossly within normal limits. Normal speech. PSYCHIATRIC: Appropriate mood and affect; insight and judgment normal. Course Initial Documented Vital Signs Temperature 97.3 F L 08/02/18 01:19 Pulse Rate 79 08/02/18 01:19 Respiratory Rate 20 08/02/18 01:19 Blood Pressure 179/119 H 08/02/18 01:19 Pulse Oximetry 96 08/02/18 01:19 Last Documented Vital Signs Temperature 98.3 F 08/02/18 09:05 Pulse Rate 73 08/02/18 09:05 Respiratory Rate 18 08/02/18 09:05 Blood Pressure 131/75 08/02/18 09:05 Pulse Oximetry 97 08/02/18 09:05 Medical Decision Making MDM Narrative Medical decision making narrative: 5:42 AM patient was given IV Compazine and IV fluid bolus. Blood test results are back and within acceptable limit. Head CT is negative. Patient says that her headache has not improved and I have given a dose of Toradol. 6:03 AM I was told by my nurse that patient's headache now is 5 out of 10. I explained to the patient that given the chest pain that she came in with I would like to rule out ACS. She has risk factors given her age and her morbid obesity. Patient understands and is agreeable to that. Medical Screen Exam Complete: Yes Emergency Medical Condition: Yes Lab Data Result diagrams: 08/02/18 02:50 08/02/18 02:50 Lab Results 08/02/18 08/02/18 08/02/18 Range/Units 02:50 02:50 02:50 WBC 6.9 (4.0-11.0) th/mm3 RBC 4.28 (4.00-5.30) mil/mm3 Hgb 14.2 (11.6-15.3) gm/dL Hct 39.9 (35.0-46.0) % MCV 93.1 (80.0-100.0) fL MCH 33.2 (27.0-34.0) pg MCHC 35.7 (32.0-36.0) % RDW 13.2 (11.6-17.2) % Plt Count 225 (150-450) th/mm3 MPV 7.4 (7.0-11.0) fL Neut % (Auto) 54.4 (16.0-70.0) % Lymph % (Auto) 32.0 (9.0-44.0) % Terry % (Auto) 10.4 H (0.0-8.0) % Eos % (Auto) 2.8 (0.0-4.0) % Baso % (Auto) 0.4 (0.0-2.0) % Neut # (Auto) 3.7 (1.8-7.7) th/mm3 Lymph # (Auto) 2.2 (1.0-4.8) th/mm3 Terry # (Auto) 0.7 (0.0-0.9) th/mm3 Eos # (Auto) 0.2 (0.0-0.4) th/mm3 Baso # (Auto) 0.0 (0.0-0.2) th/mm3 WBC Differential . Differential Comment Auto diff final Sodium 142 (136-145) meq/L Potassium 3.9 (3.5-5.1) meq/L Chloride 105 (98-107) meq/L Carbon Dioxide 32.5 H (21.0-32.0) meq/L Anion Gap 5 (5-15) meq/L BUN 16 (7-18) mg/dL Creatinine 0.80 (0.50-1.00) mg/dL Estimated GFR 76 L (>89) mL/min Random Glucose 135 H (74-106) mg/dL Calcium 9.5 (8.5-10.1) mg/dL Total Creatine Kinase (26-192) U/L Troponin I Less than 0.02 L (0.02-0.05) ng/mL 08/02/18 Range/Units 06:18 WBC (4.0-11.0) th/mm3 RBC (4.00-5.30) mil/mm3 Hgb (11.6-15.3) gm/dL Hct (35.0-46.0) % MCV (80.0-100.0) fL MCH (27.0-34.0) pg MCHC (32.0-36.0) % RDW (11.6-17.2) % Plt Count (150-450) th/mm3 MPV (7.0-11.0) fL Neut % (Auto) (16.0-70.0) % Lymph % (Auto) (9.0-44.0) % Terry % (Auto) (0.0-8.0) % Eos % (Auto) (0.0-4.0) % Baso % (Auto) (0.0-2.0) % Neut # (Auto) (1.8-7.7) th/mm3 Lymph # (Auto) (1.0-4.8) th/mm3 Terry # (Auto) (0.0-0.9) th/mm3 Eos # (Auto) (0.0-0.4) th/mm3 Baso # (Auto) (0.0-0.2) th/mm3 WBC Differential Differential Comment Sodium (136-145) meq/L Potassium (3.5-5.1) meq/L Chloride (98-107) meq/L Carbon Dioxide (21.0-32.0) meq/L Anion Gap (5-15) meq/L BUN (7-18) mg/dL Creatinine (0.50-1.00) mg/dL Estimated GFR (>89) mL/min Random Glucose (74-106) mg/dL Calcium (8.5-10.1) mg/dL Total Creatine Kinase 132 (26-192) U/L Troponin I Less than 0.02 L (0.02-0.05) ng/mL Imaging Data Radiologist's impression: Chest X-Ray 08/02/18 00:00 CONCLUSION: Cardiomegaly. Head CT 08/02/18 02:39 CONCLUSION: 1. No acute intracranial abnormalities. . ECG Data Attestation: I personally reviewed and interpreted this ECG as follows: Interpretation: Twelve-lead EKG was reviewed by me. Normal sinus rhythm, normal axis, nonspecific ST-T wave changes. Heart rate of 76 bpm. Discharge Plan Discharge Disposition Patient Disposition: 30 Still Patient Discharge Condition Condition: Stable Discharge Order Discharge Orders: Discharge Order (Routine); Ordered 08/02/18 Ordered By: [facility] Team ED Provider: Jorge Luis Mariscal Primary Care Provider: UNKNOWN, Attending Provider: Moose Culver Status ED Status: Left Department Discharge Information Discharge Date/Time: 08/02/18 08:47
[2018-08-02] MEDS ORDERED: Acetaminophen 325 MG Tablet PO ONE (06:42)
[2018-08-02 07:01] LABS: Creatine Kinase 132 U/L (26-192)
--- NOTE | 2018-08-02 08:21 | P.HPCA ---
History of Present Illness Primary Care Physician: UNKNOWN Chief Complaint: Headache and chest pain History of Present Illness: This is a 52-year-old female that presents to ED for the primary complaint of having a headache. She has history of migraines, palpitations, and hyperlipidemia. She states that she follows Dr. Wagner of neurology for her migraines. She saw her about 6 weeks ago for a migraines and was told that if her symptoms change to go to the emergency department. She states that her typical migraine is a pressure in her forehead. For the past month a month and a half the discomfort has been a discomfort that presses outward versus inward. In the same location of her forehead. It has been there constantly but the intensity waxes and wanes. Nothing in particular seems to change the symptoms, more random. Denies photophobia but has felt a little dizzy. Denies numbness, tingling, weakness in extremities. Denies neck stiffness. Denies fevers or chills. Her chest discomfort was described as a tightness in center of her chest. It began around 1:00 last evening while at home about ready to come to the ER for headache. She was already short of breath nauseous and diaphoretic with her headache is hard to say if the chest discomfort also cause that. Symptoms lasted about an hour. She states she was given medication in the emerge part which resolved her headache and at the same time her chest discomfort resolved. Chest pain has not recurred. This the first time her headache has been gone in over a month. Upon review of records, patient had an abnormal nuclear ETT in 1999 16,000 followed by a cardiac catheterization December 20, [address] Whyte revealing normal coronaries. She still follows Dr. Whyte. History of migraines, palpitations, hyperlipidemia, and GERD. Denies diabetes, hypertension, and CAD. Denies family history of CAD but states that her sister of cancer and congestive heart failure in her late 40s. Lifetime non-smoker. Denies alcohol or illicit drug use. - Diagnosis (1) Chest pain (2) Headache (3) Hyperlipidemia Review of Systems General: Patient denies fevers, chills, and recent travel. HEENT: Patient denies headache, sore throat, difficulty swallowing. Cardiovascular: Has the chest discomfort as mentioned above. Denies sensation of heart beating rapidly or irregularly. No syncope. She was diaphoretic. Respiratory: She was short of breath. Denies inspirational chest discomfort. Denies coughing wheezing or hemoptysis. GI: She was nauseous. Patient denies vomiting, diarrhea, abdominal pain, bloody stools. Musculoskeletal: Patient denies joint pain or edema. Denies calf pain or edema. Neurovascular: Patient denies numbness, tingling, weakness in extremities. Has headache as described above. Denies neck stiffness. Denies visual changes. Endocrine: Denies polyuria and polydipsia. Hematologic: Denies easy bruising. Skin: Denies rash or itching. PMFSH - History History Provided By: Patient - Medical History Medical History: Medical History (Last Reviewed 08/02/18 @ 05:41 by Jorge Luis Mariscal MD) Cholecystectomy planned H/O: hysterectomy Palpitations - Tobacco History Second Hand Smoke Exposure: No Smoking Status: Never smoker - Alcohol History How Often Do You Have a Drink Containing Alcohol: Never - Substance Use History Substance History: No History of Abuse - Travel History Recent Travel in the [facility] Within the Last 8 Weeks: No Recent Travel Out of the Country Within the Last 8 Weeks: No - Immunization History Tetanus Immunization: <5 Years Medications and Allergies Active Medications: Active Medications Sodium Chloride (Ns Flush) 2 ml IV.FLUSH BID [place] Sodium Chloride (Ns Flush) 2 ml IV.FLUSH PRN PRN PRN Reason: FLUSH AFTER USING IV ACCESS Allergies Allergy/AdvReac Type Severity Reaction Status Date / Time adhesive Allergy Intermediate Rash Unverified 05/30/17 20:08 codeine AdvReac Intermediate Nausea/Vomi Unverified 05/30/17 20:08 ting Home Medications Medication Instructions Recorded Confirmed Type metoprolol tartrate 25 mg PO BID 08/02/18 08/02/18 History pravastatin 20 mg PO DAILY 08/02/18 08/02/18 History Exam Vital signs: Vital Signs 08/02/18 01:19 08/02/18 01:23 08/02/18 01:52 Temperature 97.3 F L 98.1 F Pulse Rate 79 76 73 Respiratory Rate 20 18 20 Blood Pressure 179/119 H 162/92 H 164/86 H Pulse Oximetry 96 97 95 08/02/18 03:06 08/02/18 06:43 Temperature Pulse Rate 76 76 Respiratory Rate 12 22 Blood Pressure 153/82 H Pulse Oximetry 95 96 Intake & Output 08/01/18 08/02/18 08/02/18 18:59 06:59 18:59 Intake Total 500 / 500 Balance 500 / 500 Weight 83.915 kg Intake: IV 500 / 500 NS Inj 500 ML @ 1000 mls/hr IV. 500 / 500 SIG BOLUS [place] Rx#:[id number] Narrative: GENERAL: This is a well-nourished, well-developed patient, in no apparent distress. Patient speaks in clear complete sentences. Patient is pleasant. HEENT: Head is atraumatic and normocephalic. Neck is supple without lymphadenopathy and trachea is midline. No JVD or carotid bruits. CARDIOVASCULAR: Regular rate and rhythm without murmurs, gallops, or rubs. RESPIRATORY: Clear to auscultation. Breath sounds equal bilaterally. No wheezes , rales, or rhonchi. Chest wall is nontender. No use of accessory muscles. GASTROINTESTINAL: Abdomen is nontender, nondistended. Abdomen soft. No obvious pulsatile mass or bruit. No CVA tenderness. Strong femoral pulses bilaterally. Normal bowel sounds in all quadrants. MUSCULOSKELETAL: Patient is moving upper and lower extremities freely. No calf tenderness or edema, no Homans sign. Strong pulses in upper and lower extremities. NEUROLOGICAL: Patient is alert and oriented. Cranial nerves 2-12 are grossly intact. No focal deficits and speech is clear. SKIN: No rash and turgor is normal. Results 08/02/18 02:50 08/02/18 02:50 Cardiac Enzymes 08/02/18 08/02/18 Range/Units 02:50 06:18 Troponin I Less than 0.02 L Less than 0.02 L (0.02-0.05) ng/mL CBC 08/02/18 Range/Units 02:50 WBC 6.9 (4.0-11.0) th/mm3 RBC 4.28 (4.00-5.30) mil/mm3 Hgb 14.2 (11.6-15.3) gm/dL Hct 39.9 (35.0-46.0) % Plt Count 225 (150-450) th/mm3 Neut # (Auto) 3.7 (1.8-7.7) th/mm3 Lymph # (Auto) 2.2 (1.0-4.8) th/mm3 [place] # (Auto) 0.7 (0.0-0.9) th/mm3 Eos # (Auto) 0.2 (0.0-0.4) th/mm3 Baso # (Auto) 0.0 (0.0-0.2) th/mm3 Comprehensive Metabolic Panel 08/02/18 Range/Units 02:50 Sodium 142 (136-145) meq/L Potassium 3.9 (3.5-5.1) meq/L Chloride 105 (98-107) meq/L Carbon Dioxide 32.5 H (21.0-32.0) meq/L BUN 16 (7-18) mg/dL Creatinine 0.80 (0.50-1.00) mg/dL Calcium 9.5 (8.5-10.1) mg/dL Intake and Output 08/01/18 08/02/18 08/02/18 22:59 06:59 14:59 Intake Total 500 / 500 Balance 500 / 500 Intake: IV 500 / 500 NS Inj 500 ML @ 1000 mls/hr IV. 500 / 500 SIG BOLUS [place] Rx#:[id number] Other: Weight 83.915 kg - Imaging and Cardiology Imaging: Impressions Head CT 08/02/18 02:39 CONCLUSION: 1. No acute intracranial abnormalities. . EKG interpretations - EKG EKG shows: sinus rhythm (EKGs are sinus rhythm without significant ST segment depressions or elevations.) Caprini VTE Risk Assessment Caprini VTE Risk Assessment: No/Low Risk (score <= 1) Caprini Risk Assessment Model: Point Value = 1 Point Value = 2 Point Value = 3 Point Value = 5 Age 41-60 Minor surgery BMI > 25 kg/m2 Swollen legs Varicose veins or History of unexplained or recurrent spontaneous Oral contraceptives or hormone replacement Sepsis (< 1 month) Serious lung disease, including pneumonia (< 1 month) Abnormal pulmonary function Acute myocardial infarction Congestive heart failure (< 1 month) History of inflammatory bowel disease Medical patient at bed rest Age 61-74 Arthroscopic surgery Major open surgery (> 45 min) Laparoscopic surgery (> 45 min) Malignancy Confined to bed (> 72 hours) Immobilizing plaster cast Central venous access Age >= 75 History of VTE Family history of VTE Factor V Leiden Prothrombin [id number] Lupus anticoagulant Anticardiolipin antibodies Elevated serum homocysteine Heparin-induced thrombocytopenia Other congenital or acquired thrombophilia Stroke (< 1 month) Elective arthroplasty Hip, pelvis, or leg fracture Acute spinal cord injury (< 1 month) Prophylaxis Regimen: Total Risk Factor Score Risk Level Prophylaxis Regimen 0-1 Low Early ambulation 2 Moderate Order ONE of the following: *Sequential Compression Device (SCD) *Heparin 5000 units SQ BID 3-4 Higher Order ONE of the following medications: *Heparin 5000 units SQ TID *Enoxaparin/Lovenox 40 mg SQ daily (WT < 150 kg, CrCl > 30 mL/min) *Enoxaparin/Lovenox 30 mg SQ daily (WT < 150 kg, CrCl > 10-29 mL/min) *Enoxaparin/Lovenox 30 mg SQ BID (WT < 150 kg, CrCl > 30 mL/min) AND/OR *Sequential Compression Device (SCD) 5 or more Highest Order ONE of the following medications: *Heparin 5000 units SQ TID (Preferred with Epidurals) *Enoxaparin/Lovenox 40 mg SQ daily (WT < 150 kg, CrCl > 30 mL/min) *Enoxaparin/Lovenox 30 mg SQ daily (WT < 150 kg, CrCl > 10-29 mL/min) *Enoxaparin/Lovenox 30 mg SQ BID (WT < 150 kg, CrCl > 30 mL/min) AND *Sequential Compression Device (SCD) Assessment and Plan - Assessment (1) Chest pain Code(s): R07.9 - Chest pain, unspecified Status: Acute (2) Headache Code(s): R51 - Headache Status: Acute (3) Hyperlipidemia Code(s): E78.5 - Hyperlipidemia, unspecified Status: Acute - Plan * Chest pain: Patient will have serial cardiac enzymes and EKGs for ruling out purposes. Chest x-ray is pending. She has been seen by Dr. Culver of cardiology and the chest pain center. Symptoms are atypical and she has had a heart catheterization revealing normal coronaries in 2016. After ruling out she will be discharged home with instructions to follow-up with her PCP, neurologist, and kitchen porter. Return to ED for interval issues. * Headache: Patient's headache resolved after getting medication in the ED. She should follow-up with her neurologist Dr. Wagner. * Hyperlipidemia: Continue medication. Patient is stable at this time. She is agreeable to this plan.
--- NOTE | 2018-08-02 08:52 | XR ---
EXAM DATE: 08/02/2018 8:46 AM EST AGE/SEX: 52 years / Female INDICATIONS: Chest Pain CLINICAL DATA: This is the patient's initial encounter. Patient reports that signs and symptoms have been present for 1 day and indicates a pain score of 4/10. MEDICAL/SURGICAL HISTORY: . Heart Palpitations None. COMPARISON: [facility], CHEST SINGLE AP, 12/19/2015. . FINDINGS: The heart size is enlarged. The lungs are grossly clear. No effusion is seen. CONCLUSION: Cardiomegaly. Electronically signed by: Bridger Alejandro MD 08/02/2018 8:51 AM EST
--- NOTE | 2018-08-02 08:55 | ECG ---
Date Performed: 08/02/2018 Time Performed: 01:32:52 PTAGE: 52 years EKG: Sinus rhythm MINIMAL VOLTAGE CRITERIA FOR LVH, CONSIDER NORMAL VARIANT BORDERLINE ECG No change from prior PREVIOUS TRACING : 12/19/2015 13.08 DOCTOR: Moose Culver Interpretating Date/Time 08/02/2018 08:54:28
--- NOTE | 2018-08-02 08:59 | ECG ---
Date Performed: 08/02/2018 Time Performed: 06:15:17 PTAGE: 52 years EKG: Sinus rhythm NORMAL ECG No significant change PREVIOUS TRACING : 08/02/2018 01.32 DOCTOR: Moose Culver Interpretating Date/Time 08/02/2018 08:58:05
[2018-08-02] MEDS ORDERED: Metoprolol Tartrate 25 MG Tablet PO SCH (09:00)
[2018-08-02 09:06] VITALS: BP 131/75; PULSE 73; RESP 18; TEMP 98.3; O2SAT 97
== END 2018-08-02 10:07 | disposition home or self-care (01) ==
LOC: NEPC 01:13 → NEDA 01:13 → NEPHCDU 08:53
PROVIDERS: ADMIT Internal Medicine Interventional Cardiology; ATTEND Internal Medicine Interventional Cardiology